=== PATIENT | male | born 1990 | race Caucasian/White ===

== ENCOUNTER 2020-02-17 18:22 | Emergency (ER) | payer BC ==
[2020-02-17 19:10] VITALS: BP 113/71
--- NOTE | 2020-02-17 19:41 | ER Document Report ---
HPI - HPI Time Seen by Provider: 02/17/20 19:30 Context: Patient is a 29-year-old male who presents emergency department with a chief complaint of skin sores to his body. Patient is an IV heroin user. He states that he does have chills, but he does not know if it is through partial withdrawals, as he is cutting back on his heroin use. Patient states that on day 3 he does get a little shaky. Denies any fever. - ROS Systems Reviewed and Negative: Yes All other systems reviewed and negative - CONSTITUTIONAL Constitutional: DENIES: Fever, Chills - RESPIRATORY Respiratory: DENIES: Trouble Breathing, Coughing - MUSCULOSKELETAL Musculoskeletal: DENIES: Extremity pain - DERM Skin Color: Normal Skin Problems: Pustule - multiple to entire body Past Medical History - General Information source: Patient - Social History Smoking Status: Current Every Day Smoker Family History: Reviewed & Not Pertinent Traumatic Medical History: Denies: Hx Fractures - Immunizations Immunizations up to date: No Hx Diphtheria, Pertussis, Tetanus Vaccination: Yes Vertical Provider Document - CONSTITUTIONAL Agree With Documented VS: Yes Exam Limitations: No Limitations General Appearance: No Apparent Distress - INFECTION CONTROL TRAVEL OUTSIDE OF THE [place] IN LAST 30 DAYS: No - HEENT HEENT: Atraumatic, Normocephalic, PERRLA - NECK Neck: Normal Inspection - RESPIRATORY Respiratory: Breath Sounds Normal, No Respiratory Distress - CARDIOVASCULAR Cardiovascular: Regular Rate, Regular Rhythm Pulses: Normal: Radial - MUSCULOSKELETAL/EXTREMETIES Musculoskeletal/Extremeties: FROM - NEURO Level of Consciousness: Awake, Alert, Appropriate - DERM Integumentary: Warm, Dry, Abscess - multiple already drained areas with surrounding cellulites noted to each Course - Re-evaluation Re-evalutation: 02/17/20 19:37 I offered the patient Vistaril, but he did not want this medication. He wanted something different. I told him that this is only medication that I can offer him. Will refer him to [place]. Patient is not acutely suicidal. We will start him on Keflex and Bactrim. We will also start him on Bactroban. No evidence of necrotizing fasciitis. Counseled patient on continuing cessation of drug use. He is in agreement with this plan. Vital signs are stable. I have a low suspicion for sepsis, or any life-threatening etiology at this time. Follow-up precautions were given. Verbal discharge instructions were given to the patient. They verbalized understanding. They are stable for discharge. - Vital Signs Vital signs: Temp Pulse Resp BP Pulse Ox 97.9 F 76 16 113/71 99 02/17/20 19:09 02/17/20 19:09 02/17/20 19:09 02/17/20 19:09 02/17/20 19:09 Discharge - Discharge Clinical Impression: Rash Cellulitis Qualifiers: Site of cellulitis: unspecified site Qualified Code(s): L03.90 - Cellulitis, unspecified Condition: Stable Disposition: HOME, SELF-CARE Additional Instructions: You were seen today in the emergency department for eruption of your skin. You are being started on antibiotics. Make sure you take all your antibiotics as prescribed. Use the antibiotic ointment. Continue cutting back on your drug use. Eventually stop using drugs. You can go to [facility] if you need more help with stopping your drug use. Prescriptions: Sulfamethoxazole/Trimethoprim [Bactrim Ds Tablet] 1 each PO BID 7 Days #14 tablet Mupirocin [Bactroban 2% Ointment 22 gm] 1 applic TP TID #1 tube Cephalexin Monohydrate [Keflex 500 mg Capsule] 500 mg PO Q6H 7 Days #28 capsule [facility] - Follow up as needed [facility] [Provider Group] - Follow up as needed
== END 2020-02-17 19:42 | disposition home or self-care (01) ==
LOC: ER 18:22
DX: R21 Rash and other nonspecific skin eruption (principal); L03.90 Cellulitis, unspecified; F17.200 Nicotine dependence, unspecified, uncomplicated
CPT/HCPCS: 99283